=== PATIENT | female | born 1955 | race Caucasian/White ===

== ENCOUNTER 2018-08-30 10:35 | Observation (INO) ==
[2018-08-30] MEDS ORDERED: NITROGLYCERIN TOP ONE (11:06)
[2018-08-30 11:18] LABS: BASO# 0.02 X1000 (0.0-0.2); BASO% 0.2 % (0.0-0.8); EOS# 0.15 X1000 (0.0-0.7); EOS% 1.4 % (0.0-10.0); HEMATOCRIT 38.9 % (37.0-47.0); HEMOGLOBIN 12.9 g/dL (12.0-16.0); IMM GRAN# 0.07 X1000 (0.0-0.04); IMM GRAN% 0.6 % (0.0-0.5); LYMPH# 2.93 X1000 (1.2-3.4); LYMPH% 26.9 % (20.5-51.1); MCH 29.5 PG (27-31); MCHC 33.2 g/dL (33-37); MCV 88.8 FL (81-99); MONO# 0.94 X1000 (0.11-0.59); MONO% 8.6 % (1.7-9.3); NEUT# 6.77 X1000 (1.4-6.5); NEUT% 62.3 % (42.2-75.2); PLT 306 X1000 (130-400); RBC 4.38 XMIL (4.2-5.4); RDW 14.2 % (11.5-14.5); WBC 10.88 X1000 (4.8-10.8)
[2018-08-30 11:24] LABS: INR 0.96; PROTIME 13.6 Seconds (11.0-16.0)
[2018-08-30 11:25] LABS: PTT 28.8 Seconds (22.3-41.8)
[2018-08-30] MEDS ORDERED: ZOFRAN IV ONE (11:35)
[2018-08-30] MEDS ORDERED: MORPHINE IV ONE (11:35)
[2018-08-30 11:39] LABS: AGAP 5; ALBUMIN 4.3 g/dL (3.5-5.0); ALKALINE PHOSPHATASE 115 U/L (32-104); BUN 9 mg/dL (8-22); CALCIUM 9.6 mg/dL (8.8-10.2); CHLORIDE 104 mmol/L (98-107); CK PROFILE 17 U/L (24-173); COSMO 277; CREATININE 0.8 mg/dL (0.5-0.9); ESTIMATED GFR > 60; GLUCOSE 105 mg/dL (70-104); GOT 15 U/L (10-30); GPT 24 U/L (10-36); POTASSIUM 4.4 mmol/L (3.5-5.1); SODIUM 139 mmol/L (136-145); TCO2 30 mmol/L (25-35); TOTAL BILIRUBIN 0.27 mg/dL (0.20-1.00); TOTAL PROTEIN 6.5 g/dL (6.3-8.3)
--- NOTE | 2018-08-30 11:53 | EKG Report ---
Test Performed on : 08/30/2018 11:31:13 AM Test Reason : CP Blood Pressure : / mmHG Vent. Rate : 074 BPM Atrial Rate : 074 BPM P-R Int : 134 ms QRS Dur : 072 ms QT Int : 370 ms P-R-T Axes : 079 004 018 degrees QTc Int : 410 ms Normal sinus rhythm. Normal ECG When compared with ECG of 10-JAN-2012 07:17, ST elevation now present in Lateral leads Unconfirmed Result
--- NOTE | 2018-08-30 12:07 | Diag Imaging Result Doc PS360 ---
EXAM: CHEST-2 VIEWS 08/30/2018 HISTORY: CHEST PAIN TECHNIQUE: PA and lateral chest COMMENT: There are granulomata in the left upper lobe and left hilum. There is no evidence of acute cardiac or pulmonary disease. Compared to the previous study of 06/13/2017 there has been no significant change. Several old rib fractures are noted on the right. IMPRESSION: No evidence of acute disease. Electronically signed by Андрей Eid 08/30/2018 12:04 PM
[2018-08-30] MEDS ORDERED: DILAUDID IV ONE (12:11)
--- NOTE | 2018-08-30 13:05 | PROVIDER DOCUMENTATION ---
This chart was entered by Paulette Bridges Scribe, acting as scribe for Yung Kingsley MD. HPI-Chest Pain - General Chief Complaint: Chest Pain Stated Complaint: CP Time Seen by Provider: 08/30/18 10:57 Source: patient Allergies/Adverse Reactions: Patient Allergies Allergy/AdvReac Type Severity Reaction Status Date / Time morphine Allergy ANAPHYLAXIS Verified 04/14/17 08:58 Home Medications: Home Medication List Medication Instructions Recorded Confirmed Last Taken Type Aspirin 81 mg PO DAILY 04/14/17 04/14/17 04/18/17 History Atenolol 50 mg PO DAILY 04/14/17 04/14/17 04/18/17 History Baclofen 10 mg PO TID PRN PRN 04/14/17 04/14/17 04/18/17 History Duloxetine [Cymbalta] 60 mg PO DAILY 04/14/17 04/14/17 04/18/17 History Hydrocodone/Acetaminophen [[place] 1 each PO TID 04/14/17 04/14/17 04/18/17 History 7.5-325 Tablet] Hydroxyzine HCl 10 mg PO TID PRN PRN 04/14/17 04/14/17 04/18/17 History Omeprazole 20 mg PO DAILY 04/14/17 04/14/17 04/18/17 History Pregabalin [Lyrica] 50 mg PO TID PRN PRN 04/14/17 04/14/17 04/18/17 History Trazodone HCl 50 mg PO HS 04/14/17 04/14/17 04/18/17 History - History of Present Illness-CP Nature of Presenting Problem: Patient is a 62 year old female who presents to the ED via EMS with chest pain. Patient states chest pain has been present for 2 weeks intermittently. Patient states this episode of chest pain started this morning around 0900. Patient states she has been fatigued for 1 month. Patient states she has shortness of breath with chest pain. Patient denies nausea and diaphoresis. Patient states chest pain is 3/10. Location: reports: central Chest Pain Radiation: reports: no radiation Quality of Pain: reports: aching Severity in ED: mild Onset/Duration: this morning (0900) Timing: improving Context/Activities at Onset: reports: light activity Modifying Factors: improves with: nothing Associated Symptoms: reports: shortness of breath Nitro Today/Relief: 0.4 mg x 1, provided by EMS, mild relief Aspirin Treatment Today: 81 mg x 4, provided by EMS Similar Symptoms Previously?: Yes Recently Seen Here or By Another Healthcare Provider: Yes Review of Systems - Adult - REVIEW OF SYSTEMS - ADULT Constitutional: reports: mc. denies: chills, fever Eyes: reports: no symptoms reported Ears, Nose, Mouth & Throat: reports: no symptoms reported Cardiovascular: reports: chest pain. denies: heart murmur, irregular heart rate Respiratory: reports: shortness of breath. denies: cough, wheezing Gastrointestinal: reports: no symptoms reported Genitourinary: reports: no symptoms reported Musculoskeletal: reports: no symptoms reported Integumentary: reports: no symptoms reported Neurological: reports: no symptoms reported Psychiatric: reports: no symptoms reported Endocrine: reports: no symptoms reported Hematologic/Lymphatic: reports: no symptoms reported Allergic/Immunologic: reports: no symptoms reported All Other Systems: Reviewed and Negative Past History - Adult - PAST MEDICAL HISTORY-ADULT Review of Records: reports: Nursing Assessment Review, Medications Reviewed, Social history reviewed & non-contributory. Major Childhood Illnesses: reports: denies history Cardiovascular: reports: HTN Respiratory: reports: denies history Gastrointestinal: reports: denies history Obstetrical/Gynecological: reports: denies history Genitourinary: reports: denies history Musculoskeletal: reports: denies history Neurological: reports: denies history Psychiatric: reports: anxiety, depression Endocrine/Immune: reports: denies history Other Conditions: reports: denies history - PRIOR SURGERIES/PROCEDURES Surgical/Procedure History: reports: reviewed, not pertinent - IMMUNIZATION STATUS Childhood Immunizations: See Nurse Assessment Flu Vaccine: See Nurse Assessment - FAMILY HISTORY Family History: reviewed, not pertinent - SOCIAL HISTORY Smoking: denies Substance Use: denies Living Situation: family Physical Exam-General - PHYSICAL EXAM-ADULT Initial Vital Signs Reviewed: Yes - CONSTITUTIONAL General Appearance: alert, no apparent distress - HEAD, EARS, NOSE, MOUTH & THROAT HENMT: normal ENT inspection - NECK Neck: normal inspection - RESPIRATORY Respiratory: chest non-tender, lungs clear, normal breath sounds - CARDIOVASCULAR Cardiovascular: normal peripheral pulses, regular rate, rhythm - GASTROINTESTINAL (ABDOMEN) Abdominal Exam: normal bowel sounds, non tender, soft - MUSCULOSKELETAL Extremity: non-tender, normal inspection - SKIN Integumentary: normal color, normal turgor, warm/dry - NEUROLOGIC Neurologic: grossly normal - PSYCHIATRIC Psych/Mental Status: normal mood/affect, oriented x 3 - HEART Score HEART Score: History: Moderately Suspicious HEART Score: ECG: Normal HEART Score: Age: 45-65 Years HEART Score: Risk Factors for Atherosclerotic Disease: 1 or 2 Risk Factors HEART Score: Troponin: < or = Normal Limit Total HEART Score:: 3 Progress - PLAN OF CARE/RESULTS Progress/Plan/Lab Results: Vital Signs - 8 hr 08/30/18 10:43 Temperature 98.4 F Pulse Rate 76 Respiratory Rate 18 Blood Pressure 138/81 O2 Sat by Pulse Oximetry 98 Laboratory Results - last 24 hr 08/30/18 08/30/18 08/30/18 10:55 10:55 10:55 WBC 10.88 H RBC 4.38 Hgb 12.9 Hct 38.9 MCV 88.8 MCH 29.5 MCHC 33.2 RDW Std Deviation 14.2 Plt Count 306 MPV 12.0 H Immature Gran % (Auto) 0.6 H Neut % (Auto) 62.3 Lymph % (Auto) 26.9 [place] % (Auto) 8.6 Eos % (Auto) 1.4 Baso % (Auto) 0.2 Immature Gran # (Auto) 0.07 H Neut # (Auto) 6.77 H Lymph # (Auto) 2.93 [place] # (Auto) 0.94 H Eos # (Auto) 0.15 Baso # (Auto) 0.02 PT INR PTT (Actin FS) D-Dimer, Quantitative Sodium 139 Potassium 4.4 Chloride 104 Carbon Dioxide 30 Anion Gap 5 BUN 9 Creatinine 0.8 Estimated GFR/1.73 m2 > 60 BUN/Creatinine Ratio 11 Glucose 105 H Calculated Osmolality 277 Calcium 9.6 Total Bilirubin 0.27 AST 15 ALT 24 Alkaline Phosphatase 115 H Creatine Kinase 17 L Troponin T [id number] Pept 55 Total Protein 6.5 Albumin 4.3 Globulin 2.2 Albumin/Globulin Ratio 2.0 08/30/18 08/30/18 08/30/18 10:55 10:55 10:55 WBC RBC Hgb Hct MCV MCH MCHC RDW Std Deviation Plt Count MPV Immature Gran % (Auto) Neut % (Auto) Lymph % (Auto) [place] % (Auto) Eos % (Auto) Baso % (Auto) Immature Gran # (Auto) Neut # (Auto) Lymph # (Auto) [place] # (Auto) Eos # (Auto) Baso # (Auto) PT 13.6 INR 0.96 PTT (Actin FS) 28.8 D-Dimer, Quantitative < 0.27 Sodium Potassium Chloride Carbon Dioxide Anion Gap BUN Creatinine Estimated GFR/1.73 m2 BUN/Creatinine Ratio Glucose Calculated Osmolality Calcium Total Bilirubin AST ALT Alkaline Phosphatase Creatine Kinase Troponin T < 0.010 Ife-Q-Sdqvspzhniq Pept Total Protein Albumin Globulin Albumin/Globulin Ratio Orders Category Date Time Status Cardiac Monitoring DIRECTED Care 08/30/18 10:50 Active Notify MD if DIRECTED Care 08/30/18 12:47 Active Oxygen Therapy- ED Nursing DIRECTED Care 08/30/18 10:50 Active Saline Loc DIRECTED Care 08/30/18 12:47 Active Saline Loc NOW Care 08/30/18 10:50 Active Vital Signs Order Q 4-HR ASSESS Care 08/30/18 12:47 Active Z-Document. for Tele Applied ORDERED Care 08/30/18 12:47 Active CHEST-2 VIEWS [RAD] Stat Exams 08/30/18 10:50 Completed CBC WITH ELECTRONIC DIFF [HEME] Stat Lab 08/30/18 10:55 Completed CK PROFILE [SP CHEM] Stat Lab 08/30/18 10:55 Completed COMPREHENSIVE METABOLIC PANEL [CHEM] Stat Lab 08/30/18 10:55 Completed D-DIMER [COAG] Stat Lab 08/30/18 10:55 Completed PRO B-NATRIURETIC PEPTIDE Stat Lab 08/30/18 10:55 Completed PROTIME WITH INR [COAG] Stat Lab 08/30/18 10:55 Completed PTT [COAG] Stat Lab 08/30/18 10:55 Completed TROPONIN T Stat Lab 08/30/18 10:55 Completed Hydromorphone [Dilaudid] Med 08/30/18 12:11 Discontinued 0.5 mg IV NOW ONE Morphine Med 08/30/18 11:35 Discontinued 4 mg IV NOW ONE Nitroglycerin Med 08/30/18 11:06 Discontinued 1 inch TOP NOW ONE Ondansetron [Zofran] Med 08/30/18 11:35 Discontinued 4 mg IV NOW ONE CP/SOB/Palp >45 yrs of Age Stat Oth 08/30/18 10:50 Ordered Telemetry [OM.EQ] Routine Oth 08/30/18 12:47 Active EKG [EKG] Stat Ther 08/30/18 10:50 Draft Transfer/Admit Order [TRANSFER] Routine Transfer 08/30/18 12:45 Ordered Result Diagrams: 08/30/18 10:55 08/30/18 10:55 - REASSESSMENT Reassessment #1 Time Reassessed: 11:35 Status: worsening (patient states chest pain is 8/10.) Reassessment #2 Time Reassessed: 12:12 Status: unchanged Reassessment Comment: STILL W/ INCR CP, ALLERG TO MOR. NEVER TRIED DILAUDID Reassessment #3 Time Reassessed: 12:45 Status: improving (CP DOWN TO 2/10) - EKG 1 Time of EKG reading by physician:: 10:42 EKG Read and Signed by:: Yung Kingsley EKG Interpretation (*Must complete 3 of following elements*): Normal Rate: 75 Rhythm: normal sinus rhythm Erick: normal MS Interval: normal Comments: normal ECG 2 Time of EKG reading by physician:: 11:31 EKG Read and Signed by:: Yung Kingsley EKG Interpretation (*Must complete 3 of following elements*): Normal Rate: 74 Rhythm: normal sinus rhythm Erick: normal QRS: normal MS Interval: normal ST Wave: normal Comments: normal ECG - XRAY 1 XRAY Study: Chest Impression: See EMR Report ( EXAM: CHEST-2 VIEWS 08/30/2018 HISTORY: CHEST PAIN TECHNIQUE: PA and lateral chest COMMENT: There are granulomata in the left upper lobe and left hilum. There is no evidence of acute cardiac or pulmonary disease. Compared to the previous study of 06/13/2017 there has been no significant change. Several old rib fractures are noted on the right. IMPRESSION: No evidence of acute disease. Electronically signed by Андрей Eid 08/30/2018 12:04 PM 08/30/18 1204 Interpreting Physician: Андрей Eid MD Dictated Date/Time: 08/30/18 1204 cc: Yung Kingsley MD; Yarelis Arguelles) - CONSULTS/PCP/HOSPITALIST Notification #1 *Consult/PCP/Hospitalist*: GERRI Cuevas for Hospitalist Time Discussed: 12:22 (Dr. Aguilar accepted admit) Reason/Comments: Dr. Kingsley consulted with [place] about patient. Consult Disposition: Will see in ED, Admit Departure - Departure Date of Disposition Decision: 08/30/18 Time of Disposition Decision: 12:23 DIAGNOSIS: Chest pain, Hypertension Disposition: ADMITTED INPATIENT 09 Certified Medical Emergency: Emergent Condition: Stable - Critical Care Note This patient required my direct & personal management of CC.: Yes Total Time (mins): 30 Critical Care Statement: This patient required my direct personal management to treat or rule out processes, the absence of which, could potentiallly result in sudden, clinically significant life or limb threatening deterioration. Attestation - Physician/ MELLISSA Attestation Patient care was provided by Advanced Practice Provider:: No The physician spent face to face time with patient:: Yes Advanced Practice Provider documentation review:: Supervising physician onsite and consulted in the evaluation and care of this patient. The physician did have a face to face encounter with the patient. This chart was documented by the indicated scribe, (Paulette Bridges Scribe) and accurately reflects the services I performed and decisions made by me, Yung Kingsley MD, as attested by the provider's signature.
[2018-08-30] MEDS ORDERED: ASPIRIN PO ONE (13:18)
[2018-08-30 14:17] LABS: HEMOGLOBIN A1C 5.8 % (4.8-6.0)
[2018-08-30] MEDS ORDERED: LIORESAL PO PRN (14:38)
[2018-08-30] MEDS ORDERED: ATARAX PO PRN (14:38)
[2018-08-30] MEDS ORDERED: MIRALAX PO PRN (14:38)
[2018-08-30] MEDS ORDERED: DESYREL PO PRN (14:38)
--- NOTE | 2018-08-30 15:18 | HISTORY AND PHYSICAL ---
PRIMARY CARE PHYSICIAN: Dr. Irish Kingsley CHIEF COMPLAINT: Chest pain. HISTORY OF PRESENT ILLNESS: Mrs. Brooks is a 62-year-old female with a history of thrombocythemia on Anagrelide. She also has hypertension, anxiety, depression, and GERD. She reports with worsening chest pain over the past few months. The pain she describes is not associated with exertion. She has more of a left-sided pressure, nonradiating, that occurs randomly and is sometimes associated post prandially. Today, she was in her car actually on her way to Dr. Irish Kingsley's office for a checkup when she again had another episode of pain that was more severe than normal and brought her to the ER. She denies any exertional chest pain. She denies lower extremity edema. She denies orthopnea. No fever or chills, but she was recently placed on antibiotics and steroids for bronchitis. She finished treatment a few days ago. When she came to the ER today, labs and diagnostics were done. Chest x-ray did not show anything acute. EKG shows normal sinus rhythm without acute ST or T abnormalities. There are nonspecific changes in the lateral leads of the ST segments. Cardiac enzymes are negative. As such, she is going to be admitted for observation status. PAST MEDICAL HISTORY: 1. Thrombocythemia on Anagrelide therapy followed by Dr. Decker. 2. Hypertension. 3. Anxiety and depression. 4. Gastroesophageal reflux disease. PAST SURGICAL HISTORY: 1. Hysterectomy. 2. Bone marrow biopsy. 3. Cholecystectomy. 4. Multiple back surgeries. 5. Tonsillectomy. SOCIAL HISTORY: No tobacco, alcohol or drug use. She is . She has a mother and sister at the bedside. She is retired. FAMILY HISTORY: Father from myocardial infarction in his 60s. His first diagnosis of coronary disease was in his mid 50s. There is also significant history of coronary artery disease and diabetes throughout her father's family, and her mother does have diabetes. REVIEW OF SYSTEMS: A 14-point review of systems was obtained and found to be negative with the exception of the HPI. ALLERGIES: Morphine. HOME MEDICATIONS: 1. Anagrelide 0.5 mg p.o. b.i.d. 2. Aspirin 81 mg daily. 3. Atenolol 50 mg p.o. daily. 4. Baclofen 10 mg p.o. t.i.d. 5. Vitamin D3 2000 units daily. 6. Cymbalta 60 mg nightly. 7. Hydroxyzine 10 mg p.o. t.i.d. 8. Melatonin 5 mg nightly. 9. Omeprazole 20 mg daily. 10.Polyethylene glycol 1 capsule daily. 11.Pregabalin 50 mg b.i.d. 12.Trazodone 50 mg p.o. nightly. PHYSICAL EXAMINATION: VITAL SIGNS: Blood pressure is 138/81, heart rate 76, respiratory rate 18, O2 saturation 98% on room air, temperature 98.4. GENERAL: A well-developed, well-nourished, female lying in the hospital bed in no acute distress. NEUROLOGIC: Awake, alert and oriented. Follows commands without focal deficits. HEENT: Head is atraumatic and normocephalic. Pupils equal, round and reactive to light. Oral mucosa is moist. Trachea midline. No JVD. No carotid bruits. CHEST: Clear to auscultation bilaterally. CARDIOVASCULAR: Regular rate and rhythm. S1 and S2 noted. No murmurs. ABDOMEN: Soft, nondistended, nontender. Bowel sounds positive. EXTREMITIES: Without edema. Pulses 1+ bilaterally. DIAGNOSTIC DATA: Chest x-ray is negative. EKG is sinus rhythm with nonspecific ST changes in the lateral leads. WBC 10.88, hemoglobin 12.9, hematocrit 38.9, platelet count 306 , INR 0.96, D-dimer 0.27. Chemistry reviewed and unremarkable. Troponin is negative x2 sets. ASSESSMENT AND PLAN: 1. Chest pain: Atypical in nature. Will admit for observation status, check an echocardiogram, trend her enzymes, consult Cardiology for ischemic evaluation. Will follow telemetry. Check hemoglobin A1c and lipid panel in the morning. 2. Thrombocythemia: Continue her Anagrelide. Have her follow up with Dr. Decker outpatient. No acute hematologic issues at this time. 3. Hypertension: Stable. Continue home medications. 4. Anxiety/depression: Stable. Continue home medications. 5. Deep venous thrombosis prophylaxis with Lovenox. Further recommendations to follow. Dictated by GERRI Toscano for Víctor Aguilar MD cc: GERRI Toscano MD Lindsay Smith I have seen and examined Ms Brooks today. I have also reviewed her labs and imaging studies. Ms Brooks presents with atypical chest pain. will need to r/o CAD with cardiac re-stratification studies. cardiology consulted as well. I agree with the above HPI and the plan reflects my opinion discussed with the CONDUIT BENDER. ISIDRO
[2018-08-30] MEDS ORDERED: LOVENOX SUBQ SCH (18:00)
--- NOTE | 2018-08-30 18:49 | CARDIOLOGY CONSULTATION ---
DATE: 08/30/2018 CHIEF COMPLIANT ON PRESENTATION: Chest pain. HISTORY OF PRESENT ILLNESS: Ms. Brooks is a 62-year-old, white female with a history of thrombocytopenia. She normally follows with Dr. Decker for this. In addition, her primary care physician is Dr. Kingsley. She presented to Dr. Kingsley's office yesterday for routine checkup when she complained of some chest discomfort that she has been experiencing periodically for the last 2 months. None of these have been exertional in nature. Some of them last for a few minutes. Some for several hours. During the ones that she notices that last for several hours, she cannot think of any provokers or palliators. She has not noted any specific food triggers. She occasionally has radiation of this up into her jaw as well as over into the left arm. She has no other associated symptoms with it. She describes the symptom as a tightness. PAST MEDICAL HISTORY: 1. Significant for thrombocytopenia. Currently on anagrelide, followed by Dr. Decker. 2. Hypertension. 3. Reflux disease. SOCIAL HISTORY: No current tobacco, alcohol or illicit drugs. She is . FAMILY HISTORY: Her father was in his late 60s when he from an [place]. REVIEW OF SYSTEMS: A 10 system review of systems is negative except for those things mentioned in the HPI. PHYSICAL: Vital Signs: She is afebrile. Heart rate is 68, her blood pressure is 115/67. Generally: She is in no acute distress. HEENT: Oropharynx is moist. Normal dentition. Eye examination shows pink conjunctivae, white sclerae. Neck: Examination shows no obvious thyromegaly or thyroid tenderness. Cardiovascular: She sounds to be in a regular rate and rhythm. She did not have any obvious murmurs. There is no S3. She had no lower extremity edema. No carotid bruits. Her chest was clear bilaterally. She had no increased work of breathing. Abdomen: Soft, nontender, nondistended. She has no obvious organomegaly. Skin Exam: Warm and dry throughout without any rashes. Neurological: She is moving all extremities well. She has no lateralizing deficits. PERTINENT DATA: Her EKG this morning at 10:41 at her PCP office shows sinus rhythm with no signs of ischemic changes. Subsequent EKG at 11:31 here, shows sinus rhythm, no signs of ischemic changes. No significant evidence of injury pattern, and the EKG just prior to that, at 10:42, shows sinus rhythm, no signs of ischemic changes or evidence of injury pattern. These were all reviewed by me. Her chest x-ray here demonstrates no evidence of any acute findings. Laboratory data shows a white count of 10.8, hematocrit 38, platelet count of 306. Her INR is 0.9. Her D-dimer is normal. Sodium was 139, potassium is 4.4, BUN 9, creatinine 0.8. Cardiac enzymes are negative. ASSESSMENT: Ms. Brooks is a 62-year-old female who presents with chest pain with typical and atypical features. PLAN: She has one cardiac risk factor being hypertension. She does not have an early cardiac or family history of cardiac disease. She has arranged for a stress rest Lexiscan in the morning, as well as an echo. For now, she is on aspirin. We will continue with current regimen for the time being. cc: Olegario Lopez MD
[2018-08-30] MEDS: NITROGLYCERIN SL PRN (18:54)
[2018-08-30] MEDS ORDERED: MELATONIN PO SCH (21:00)
[2018-08-30] MEDS ORDERED: CYMBALTA PO SCH (21:00)
[2018-08-30] MEDS: ANAGRELIDE HCL 0.5 MG PO SCH (22:33)
[2018-08-30] MEDS: LYRICA PO SCH (22:34)
[2018-08-31 06:45] LABS: HEMATOCRIT 38.1 % (37.0-47.0); HEMOGLOBIN 12.7 g/dL (12.0-16.0); MCH 30.2 PG (27-31); MCHC 33.3 g/dL (33-37); MCV 90.5 FL (81-99); RBC 4.21 XMIL (4.2-5.4); RDW 14.4 % (11.5-14.5); WBC 9.18 X1000 (4.8-10.8)
[2018-08-31 06:59] LABS: AGAP 9; BUN 12 mg/dL (8-22); CALCIUM 8.9 mg/dL (8.8-10.2); CHLORIDE 104 mmol/L (98-107); COSMO 281; CREATININE 0.9 mg/dL (0.5-0.9); ESTIMATED GFR > 60; GLUCOSE 96 mg/dL (70-104); POTASSIUM 4.1 mmol/L (3.5-5.1); SODIUM 141 mmol/L (136-145); TCO2 28 mmol/L (25-35)
[2018-08-31 07:15] LABS: HEMOGLOBIN A1C 5.7 % (4.8-6.0)
--- NOTE | 2018-08-31 08:03 | EKG Report ---
Test Performed on : 08/31/2018 06:51:44 AM Test Reason : chest pain Blood Pressure : / mmHG Vent. Rate : 075 BPM Atrial Rate : 075 BPM P-R Int : 140 ms QRS Dur : 086 ms QT Int : 400 ms P-R-T Axes : 022 022 -15 degrees QTc Int : 446 ms Normal sinus rhythm. Normal ECG When compared with ECG of 30-AUG-2018 11:31, (Unconfirmed) No significant change was found Confirmed by Tyler Monteiro MD ([id number]) on 09/01/2018 7:10:05 AM
[2018-08-31] MEDS ORDERED: LEXISCAN ONE (08:44)
[2018-08-31] MEDS ORDERED: PRILOSEC PO SCH (09:00)
[2018-08-31] MEDS ORDERED: TENORMIN PO SCH ×2 (09:00)
[2018-08-31] MEDS ORDERED: VITAMIN D PO SCH (09:00)
[2018-08-31] MEDS ORDERED: ASPIRIN PO SCH ×2 (09:00)
[2018-08-31] MEDS ORDERED: AMINOPHYLLINE ONE (09:10)
[2018-08-31] MEDS: LYRICA PO SCH (11:32)
[2018-08-31] MEDS: ANAGRELIDE HCL 0.5 MG PO SCH (11:33)
[2018-08-31] MEDS: NITROGLYCERIN SL PRN ×3 (13:22→13:52)
--- NOTE | 2018-08-31 14:35 | ECHO REPORT ---
ORDER DATE: 08/30/2018 ECHOCARDIOGRAPHY: INDICATIONS: Chest pain. FINDINGS: 1. The right atrium appears normal in size. 2. Trace tricuspid regurgitation. RV systolic pressure of 26. 3. Normal RV size and systolic function. 4. Trace pulmonic insufficiency. 5. Normal left atrial size at 3.7 cm. 6. No mitral valve prolapse. Trace mitral regurgitation. 7. Normal LV size. End-diastolic dimension of 4.3 cm. Normal wall thicknesses with posterior and interventricular septal wall thickness of 0.8 cm each. Normal LV systolic function. Estimated EF of 60% with normal wall motion. 8. Aortic valve opens well. It is trileaflet. Trace insufficiency. No stenosis. 9. Aorta appears normal in visualized segments. 10. No pericardial effusion seen. cc: MD Paddy Ann CRNP
--- NOTE | 2018-08-31 15:23 | PROGRESS NOTE ---
DATE: 08/31/2018 SUBJECTIVE: Today Ms. Brooks time refers to be doing a lot better. She actually denies any chest pain. OBJECTIVE: Vital Signs: Blood pressure is 114/76, pulse is 107, respirations 20, temperature is 98.1. General: Ms. Brooks is a 62-year-old female. She was in bed. She was not in any cardiopulmonary distress. HEENT: Mucosa is pink and moist. Anicteric. Acyanotic. Neck: Supple. Chest: Clear to auscultation. No crepitations. No rhonchi. Cardiovascular: Regular rate and rhythm. No murmurs, no rubs, no gallops. Abdomen: Soft, nontender. Bowel sounds were present. Extremities: No pedal edema. Central Nervous System: Patient is awake, alert and oriented. There was no focal neurological deficit. LABORATORY DATA: WBC is 9.18, hemoglobin is 12.7, platelet count of 279,000. Chemistry is also reviewed, unremarkable. A chest x-ray yesterday did not show any evidence of acute disease. Echocardiogram shows an ejection fraction of 60% with normal wall motion. The patient is still pending a stress test. ASSESSMENT: 1. Atypical chest pain from with unremarkable EKGs and troponins have been negative. The patient had a stress test this morning. We are still pending the official report. If it is normal, I think we will be able to discharge her today. 2. History of essential thrombocytosis, on anagrelide. Followed up by Dr. Decker. 3. Hypertension, controlled. cc: Víctor Aguilar MD
[2018-08-31 15:52] VITALS: BP 134/75
--- NOTE | 2018-08-31 15:55 | Diag Imaging Result Document ---
PROCEDURE NAME: MYOCARDIAL PERF SCAN, STR/REST - 08/31/2018 INDICATION: Chest pain. PROCEDURES PERFORMED: 1. Lexiscan stress. 2. One-day stress rest myocardial perfusion imaging. PROCEDURE IN DETAIL: Ms. Brooks was brought back to the nuclear laboratory and had a resting study with injection of 14.4 mCi of technetium-99m sestamibi with usual imaging protocol utilized. She subsequently was brought back and had a Lexiscan stress and at peak stress, was injected with 39.8 mCi of technetium-99m sestamibi with usual imaging protocol utilized. FINDINGS: LEXISCAN STRESS RESULTS: 1. Baseline EKG shows sinus rhythm. 2. Lexiscan stress did not demonstrate any clear evidence of ischemic related EKG changes or significant arrhythmias. PERFUSION IMAGING RESULTS: 1. No evidence of abnormal extracardiac uptake. 2. TID ratio 0.88. 3. Perfusion imaging demonstrates a very small size, mild intensity, fixed defect at the apex. This is likely suggestive of apical thinning artifact. There is no evidence of ischemia on this study. This is a low risk study. 4. Normal ejection fraction 82%. End-diastolic volume 68, end systolic volume 12. Normal wall motion. cc: MD Melyssa Ann PA
[2018-08-31] MEDS ORDERED: ANAGRELIDE HCL PO SCH (21:00)
--- NOTE | 2018-09-01 16:06 | DISCHARGE SUMMARY ---
ADMISSION DATE: 08/30/2018 DISCHARGE DATE: 08/31/2018 DISPOSITION: Is home. FOLLOWUP: Will be 1. Ms Yarelis Macdonald. 2. Dr. Olegario Lopez. 3. Dr. Box. CONSULTATION: Cardiology was consulted patient was seen by Dr. Lopez. INVASIVE PROCEDURE: None. IMAGING STUDIES OF SIGNIFICANCE: 1. A chest x-ray did show no evidence of acute disease. There was however several old rib fractures noted on the right. 2. A stress test showed no evidence of ischemia and normal ejection fraction of 82%. 3. Multiple EEGs were done. 4. Echocardiogram shows ejection fraction of 60% with normal wall motion, no remarkable valvulopathy. ADMISSION DIAGNOSIS: 1. Chest pain. 2. Thrombocythemia. 3. Hypertension. 4. Anxiety depression. DISCHARGE DIAGNOSIS: 1. Atypical chest pain with unremarkable cardiac markers and negative stress test, this is unlikely to be cardiac in origin. There is consideration of possible esophageal spasms versus any other GI related pathology. Patient is advised to follow up with Dr. Box for GI outpatient evaluation. 2. History of essential thrombocytosis, patient is on anagrelide followed up with Dr. Decker. 3. Hypertension controlled. 4. Chronic pain syndrome on multiple pain medications. 5. High risk for polypharmacy. 6. History of depression and anxiety. DISCHARGE MEDICATIONS: 1. Aspirin 81 mg daily. 2. Cymbalta 60 mg p.o. at bedtime. 3. Pregabalin 50 mg b.i.d. 4. Hydroxyzine 10 mg 3 times per day. 5. Trazodone 50 mg p.o. at bedtime. Baclofen 10 mg 3 times per day. 1. Atenolol 50 mg daily. 2. Vitamin D. 3. Melatonin 5 mg at bedtime. 4. Anagrelide 0.5 b.i.d. 5. Tramadol 50 mg p.o. q.8. Nifedipine 10 mg 3 times per day. 1. Omeprazole 20 mg b.i.d. PRESENTING COMPLAINT: Chest pain. HISTORY PRESENTING COMPLAINT: Ms. Brooks is a 62-year-old female with history of thrombocythemia on anagrelide, anxiety, depression, hypertension disorders who came to emergency department because of ongoing worsening chest pain. Patient was evaluated in the ER. Initial cardiac evaluation was negative. She was however at high risk for coronary artery disease so she was admitted for cardiac risk stratification. HOSPITAL COURSE: Ms. Brooks was admitted to the medical floor was on tele monitoring, was started back on some of her home medications, was adequately hydrated and Cardiology was consulted. Patient was seen by Dr. Olegario Lopez, a decision for stress test was made. Ms. Brooks cardiac markers were also trended 3 times and repeat EKG was also done all of which came back negative. A chest x-ray was also unremarkable. All her other comorbidities including blood pressure, glucose were all controlled. Today after the stress test official report indicates no evidence of ischemia and that it is low risk study. Ms. 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 I think that now that we know her stress test is negative she could potentially also have a GI related pathology that could explain her chest pain including gastritis, esophagitis or esophageal spasms. Of note Ms. Brooks has been taking a lot of ibuprofen recently for back pain. We have gone over this medication and the risk of affecting the GI system and she has been advised to avoid any NSAIDs. She is also advised to observe GERD precautions, avoid any coffee or spicy food. Her omeprazole has been doubled up to b.i.d. and she has been given a prescription for tramadol for pain control. Ms. Brooks refers to be doing a lot better now. Her blood pressure is currently 134/75, pulse is 70, respiration is 20, temperature 97.4 degrees, she is saturating 98% on room air. She is currently in stable condition for discharge. All the discharge instructions have been discussed with her and she voiced understanding. Her attending nurse was at the bedside at the time of the encounter. There was no any family member present. TIME SPENT: 36 minutes. cc: Olegario Lopez MD
== END 2018-08-31 18:27 | disposition home or self-care (01) ==
LOC: SUPCPDRO → ED 10:35 → INTOOBSV 12:54 → 4N 12:54
PROVIDERS: ATTEND Internal Medicine
CPT/HCPCS: 71020; 71046; 78452; 80048; 80053; 80061; 82550; 83036; 83721; 83735; 83880; 84484; 85025; 85027; 85379; 85610; 85730; 93005; 93010; 93017; 93306; 94761; 99285; A9270; A9500; C8929; J0280; J0820; J1650; J2785; Q9957